=== PATIENT | male | born 1995 | race Two or more races ===

== ENCOUNTER 2020-02-23 17:34 | Emergency (ER) | payer SELFPAY ==
[2020-02-23 17:39] VITALS: BP 159/90
[2020-02-23] MEDS ORDERED: DIPH/PERTUSS(ACELL)/TETANUS VAC/PF 0.5 ML SYR (>=10YO) IM ONE (19:12)
[2020-02-23] MEDS ORDERED: SULFAMETHOXAZOLE/TRIMETHOPRIM 800-160 MG TABLET PO ONE (19:13)
[2020-02-23] MEDS ORDERED: CEPHALEXIN 500 MG CAPSULE PO ONE (19:13)
--- NOTE | 2020-02-23 19:14 | ER Document Report ---
ED Medical Screen (RME) - General Chief Complaint: Laceration Stated Complaint: LACERATION/RIGHT ARM Time Seen by Provider: 02/23/20 19:12 Mode of Arrival: Ambulatory Information source: Patient Notes: Patient states that he fell at work 3 weeks ago injuring his right forearm. Patient states that he has been using peroxide and keeping wound covered although the arm has continued to be painful. Patient with purulent drainage from puncture wound to the right forearm. I have greeted and performed a rapid initial assessment of this patient. A comprehensive ED assessment and evaluation of the patient, analysis of test results and completion of the medical decision making process will be conducted by additional ED providers. - Related Data Allergies/Adverse Reactions: No Known Allergies Allergy (Unverified 02/23/20 19:11) Physical Exam - Vital signs Vitals: Temp Pulse Resp BP Pulse Ox 98.6 F 92 16 159/90 H 99 02/23/20 17:38 02/23/20 17:38 02/23/20 17:38 02/23/20 17:38 02/23/20 17:38 - General General appearance: Appears well, Alert Notes: Puncture wound to middle third of right forearm with spontaneously draining purulent drainage Course - Vital Signs Vital signs: Temp Pulse Resp BP Pulse Ox 98.6 F 92 16 159/90 H 99 02/23/20 17:38 02/23/20 17:38 02/23/20 17:38 02/23/20 17:38 02/23/20 17:38
--- NOTE | 2020-02-23 19:38 | RADIOLOGY REPORT (SQ) ---
EXAM DESCRIPTION: FOREARM RIGHT IMAGES COMPLETED DATE/TIME: 02/23/2020 7:26 pm REASON FOR STUDY: PW, ? FB COMPARISON: None. NUMBER OF VIEWS: Two views. TECHNIQUE: Two radiographic images acquired of the right forearm, including elbow and wrist in at le ast one projection. LIMITATIONS: None. FINDINGS: MINERALIZATION: Normal. BONES: No acute fracture. No worrisome bone lesions. SOFT TISSUES: Soft tissue swelling. No foreign body. OTHER: No other significant finding. IMPRESSION: NEGATIVE STUDY OF THE RIGHT FOREARM. NO RADIOGRAPHIC EVIDENCE OF ACUTE INJURY. TECHNICAL DOCUMENTATION: JOB ID: [id number] 2010 [employer]- All Rights Reserved Reading location - IP/workstation name: [email or web address]
[2020-02-23] MEDS ORDERED: CEFTRIAXONE INJ 1000 MG VIAL IM ONE (20:51)
[2020-02-23] MEDS ORDERED: GENTAMICIN SULFATE INJ 80 MG/2 ML VIAL IM ONE (20:52)
--- NOTE | 2020-02-23 20:58 | ER Document Report ---
ED Medical Screen ([facility]) - General Chief Complaint: Arm Injury Stated Complaint: LACERATION/RIGHT ARM Time Seen by Provider: 02/23/20 19:12 Mode of Arrival: Ambulatory Information source: Patient Notes: ED Medical Screen ([facility]) - General Chief Complaint: Laceration Stated Complaint: LACERATION/RIGHT ARM Time Seen by Provider: 02/23/20 19:12 Mode of Arrival: Ambulatory Information source: Patient Notes: Patient states that he fell at work 3 weeks ago injuring his right forearm. Patient states that he has been using peroxide and keeping wound covered although the arm has continued to be painful. Patient with purulent drainage from puncture wound to the right forearm. my notes 24-year-old Palestinian arrives with 3-week history of swelling to his right forearm. 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 He slipped falling backwards with his left hand with the broom and fell upon his right forearm abrading it approx imately 2 cm. Since that time the forearm has been painful and swollen. The left forearm today is 29-1/2 cm in circumference and the right forearm is 31-1/2 cm in circumference. Patient has full range of motion of his elbow and his wrist and fingers with good sensation good capillary refill. He denied any LOC when this occurred 3 weeks ago. He has not been taking any antibiotics since then but was given Keflex and Bactrim upon arrival after wound culture. His x- ray of his right forearm was negative per radiology. Patient speaks good Qatari and is bilingual and appears to understand what I am saying. TRAVEL OUTSIDE OF THE [place] IN LAST 30 DAYS: No - HPI Onset: Other - 3 weeks ago Onset/Duration: Sudden, Persistent Quality of pain: Achy Severity: Mild Pain Level: 1 Associated Symptoms: None Exacerbated by: Movement Relieved by: Denies Similar symptoms previously: No Recently seen / treated by doctor: No - Related Data Allergies/Adverse Reactions: No Known Allergies Allergy (Unverified 02/23/20 19:11) Past Medical History - General Information source: Patient - Social History Cigarette use (# per day): No Chew tobacco use (# tins/day): No Frequency of alcohol use: None Drug Abuse: None Lives with: Family Family history: Reviewed & Not Pertinent Review of Systems - Review of Systems Constitutional: See HPI EENT: No symptoms reported Cardiovascular: No symptoms reported Respiratory: No symptoms reported Gastrointestinal: No symptoms reported Genitourinary: No symptoms reported Male Genitourinary: No symptoms reported Musculoskeletal: See HPI, Muscle pain, Other - Forearm swelling proximally. Abrasion Skin: No symptoms reported Hematologic/Lymphatic: No symptoms reported Neurological/Psychological: No symptoms reported Physical Exam - Vital signs Vitals: Temp Pulse Resp BP Pulse Ox 98.6 F 92 16 159/90 H 99 02/23/20 17:38 02/23/20 17:38 02/23/20 17:38 02/23/20 17:38 02/23/20 17:38 Interpretation: Hypertensive - HEENT Head: Normocephalic, Atraumatic Eyes: Normal Pupils: PERRL Mouth/Lips: Normal Mucous membranes: Normal Pharynx: Normal Neck: Normal - Respiratory Respiratory status: No respiratory distress Chest status: Nontender Breath sounds: Normal Chest palpation: Normal - Cardiovascular Rhythm: Regular Heart sounds: Normal auscultation Murmur: No - Abdominal Inspection: Normal Distension: No distension Bowel sounds: Normal Tenderness: Nontender Organomegaly: No organomegaly - Rectal Prostate: Other - deferred - Genitourinary Scrotum: Other - deferred - Back Back: Normal - Extremities General upper extremity: Tender, Edema General lower extremity: Normal inspection - Neurological Neuro grossly intact: Yes Cognition: Normal Orientation: AAOx4 Trinity Coma Scale Eye Opening: Spontaneous Trinity Coma Scale Verbal: Oriented Trinity Coma Scale Motor: Obeys Commands Lud[place] Coma Scale Total: 15 Speech: Normal Motor strength normal: LUE, RUE, LLE, RLE Sensory: Normal - Psychological Associated symptoms: Normal affect - Skin Skin Temperature: Warm Skin Moisture: Dry Skin Color: Other - Skin avulsion of right forearm proximally volar area approxi mately 2 cm diameter with edema and some purulent discharge. Course - Vital Signs Vital signs: Temp Pulse Resp BP Pulse Ox 98.6 F 92 16 159/90 H 99 02/23/20 17:38 02/23/20 17:38 02/23/20 17:38 02/23/20 17:38 02/23/20 17:38 - Diagnostic Test Radiology reviewed: Reports reviewed Doctor's Discharge - Discharge Clinical Impression: Abscess of forearm, right Condition: Good Disposition: HOME, SELF-CARE Instructions: Tetanus Immunization Given ([facility]), Abscess ([facility]), Laceration Care ([facility]), Soap Cleansing ([facility]), Trimethoprim-Sulfa ([facility]), Cephalexin ([facility]) Additional Instructions: Follow-up with personal doctor this week return to ER as needed especially if the forearm becomes larger and reddened and sensation changes occur to your hand R; keep wound clean and dry; may apply bacitracin to affected wound after cleansing it with Hibiclens daily. Gently apply Hibiclens soap to wound and allow this to dry for 10 minutes then rinse off with lukewarm water and pat dry. Try to keep this covered with a Band-Aid or with Kerlex cotton while you are at work. Take medicines by mouth orally as directed. Prescriptions: Chlorhexidine Gluconate [Antiseptic Skin Cleanser] 5 ml TP DAILY #1 bottle Sulfamethoxazole/Trimethoprim [Bactrim Ds Tablet] 1 tab PO BID #20 tablet Cephalexin Monohydrate [Keflex 500 mg Capsule] 500 mg PO TID 5 Days #10 capsule Forms: Return to Work Print Language: Hong Konger
[2020-02-23 21:06] LABS: ABSOLUTE EOSINOPHILS # (AUTO) 0.1 10^3/uL (0.0-0.6); ABSOLUTE LYMPHOCYTES (AUTO) 1.9 10^3/uL (0.5-4.7); ABSOLUTE MONOCYTES (AUTO) 0.9 10^3/uL (0.1-1.4); ABSOLUTE NEUT (AUTO) 7.4 10^3/uL (1.7-8.2); BASOPHILS % (AUTO) 0.4 % (0-2); HEMATOCRIT 44.7 % (37.9-51.0); HEMOGLOBIN 15.4 g/dL (13.5-17.0); LYMPHOCYTES % (AUTO) 18.1 % (13-45); MEAN CORPUSCULAR HEMOGLOBIN 30.3 pg (27.0-33.4); MEAN CORPUSCULAR HGB CONC 34.5 g/dL (32.0-36.0); MEAN CORPUSCULAR VOLUME 88 fl (80-97); MONOCYTES % (AUTO) 8.8 % (3-13); PLATELET COUNT 251 10^3/uL (150-450); RED BLOOD COUNT 5.09 10^6/uL (4.35-5.55); RED CELL DISTRIBUTION WIDTH 13.9 % (11.5-14.0); SEGMENTED NEUTROPHILS % (AUTO) 71.7 % (42-78); TOTAL CELLS COUNTED % (AUTO) 100 %; WHITE BLOOD COUNT 10.3 10^3/uL (4.0-10.5)
[2020-02-23 21:23] LABS: ALBUMIN 4.8 g/dL (3.5-5.0); ALKALINE PHOSPHATASE 133 U/L (38-126); ANION GAP 11 (5-19); ASPARTATE AMINO TRANSFERASE 45 U/L (17-59); BILIRUBIN,TOTAL 0.6 mg/dL (0.2-1.3); BLOOD UREA NITROGEN 16 mg/dL (7-20); CALCIUM 9.3 mg/dL (8.4-10.2); CARBON DIOXIDE 25 mmol/L (22-30); CHLORIDE 103 mmol/L (98-107); GLUCOSE 120 mg/dL (75-110); POTASSIUM 3.8 mmol/L (3.6-5.0); TOTAL PROTEIN 8.4 g/dL (6.3-8.2)
--- NOTE | 2020-02-23 21:59 | RADIOLOGY REPORT (SQ) ---
US EXTREMITY MUSCULOSKELETAL LIMITED HISTORY: Forearm pain and swelling. COMPARISON: None. TECHNIQUE: Hutchins-scale and color Doppler images of the right forearm were obtained. FINDINGS: Images through the area of clinical concern in the right forearm demonstrate a complex collection measuring 2.8 x 2.1 cm in the soft tissues with surrounding color Doppler blood flow. There is diffuse overlying subcutaneous edema. No foreign bodies are seen. IMPRESSION: 1. 2.8 cm complex collection in the soft tissues of the right forearm suggestive of abscess, hematoma, or seroma. 2. No foreign bodies.
== END 2020-02-23 21:47 | disposition home or self-care (01) ==
LOC: ER 17:34
DX: L02.413 Cutaneous abscess of right upper limb (principal); S51.831A Puncture wound without foreign body of right forearm, initial encounter; W01.198A Fall on same level from slipping, tripping and stumbling with subsequent striking against other object, initial encounter; Y93.E5 Activity, floor mopping and cleaning; Y92.511 Restaurant or cafe as the place of occurrence of the external cause; Y99.0 Civilian activity done for income or pay; Z23 Encounter for immunization
CPT/HCPCS: 99285; 96372; 90471; 36415; 87040; 87070; 87205; 85025; 87077; 80053; 87186; 73090; 76882; 90715; J1580; J0696